=== PATIENT | male | born 1985 | race Caucasian/White ===

== ENCOUNTER → 2017-03-30 | Outpatient (CLI) | payer BC ==
--- NOTE | 2017-03-30 17:34 | RAD ---
History: Neck pain. Study: Five views of the cervical spine Comparison: None Findings: There is normal curvature and alignment without fracture or disk space narrowing. There ar e no significant degenerative osteophytes. The facet 's are unremarkable. The spinous processes are intact. No bony neural foraminal stenosis is demonstrated. Impression: Negative Reported By:
--- NOTE | 2017-03-30 17:35 | RAD ---
History: Back pain. Study: Three views of the thoracic spine Comparison none Findings: There is normal curvature and alignment without fracture or compression or disc space narr owing or significant osteophyte formation. The visualized ribs are intact. Impression: Negative Reported By:
== END ==
LOC: RAD 15:48
PROVIDERS: ATTEND Nurse Practitioner Family
DX: M54.2 Cervicalgia (principal); M54.5 Low back pain
CPT/HCPCS: 72050; 72072